=== PATIENT | female | born 1965 | race Hispanic/Latino ===

== ENCOUNTER 2017-11-27 07:04 | Day surgery (SDC) | payer BC ==
--- OUTSIDE RECORDS SUMMARY | 2017-11-27 07:07 | XMS REPORT ---
:1965 Author Organization [employer] Care Team Providers Name Role Phone Emile Myrick Provider Role Unavailable Allergies, Adverse Reactions, Alerts Substance Reaction Event Type N.K.D.A. Info Not Available Non Drug Allergy Problems Problem Type Condition Code Onset Dates Condition Status Problem Family history of diabetes mellitus Z83.3 Active Problem Multiple joint pain M25.50 Active Problem Family history of breast cancer Z80.3 Active Assessment Encounter for screening colonoscopy Z12.11 Active Problem Seasonal and perennial allergic J30.9 Active rhinitis Problem Metabolic syndrome X E88.81 Active Problem Swelling of hand, unspecified M79.89 Active laterality Problem Hyperlipidemia, unspecified E78.5 Active hyperlipidemia type Problem Cerumen impaction H61.20 Active Problem Prediabetes R73.09 Active Problem Hypertension I10 Active Problem Obesity E66.9 Active Medications Medication Code System Code Instructions Start End Date Status Dosage Date Duexis [facility] 97832745803 800-26.6 MG Active 1 tablet Orally Three times a day Nasonex [facility] 84483639830 50 MCG/ACT Active 2 sprays in Nasally Once a each day nostril Zestoretic [facility] 29066661535 10-12.5 MG Active 1 tablet Orally Once a day Results No Known Results Summary Purpose [employer] Submission
--- OUTSIDE RECORDS SUMMARY | 2017-11-27 07:07 | XMS REPORT ---
:1965 Author Organization [employer] Care Team Providers Name Role Phone Oliver Zee Provider Role Unavailable Allergies No Known Allergies Problems Problem Type Condition Code Onset Dates Condition Status Problem Family history of diabetes mellitus Z83.3 Active Problem Multiple joint pain M25.50 Active Problem Family history of breast cancer Z80.3 Active Problem Seasonal and perennial allergic J30.9 Active rhinitis Problem Metabolic syndrome X E88.81 Active Problem Swelling of hand, unspecified M79.89 Active laterality Problem Hyperlipidemia, unspecified E78.5 Active hyperlipidemia type Problem Cerumen impaction H61.20 Active Problem Prediabetes R73.09 Active Problem Hypertension I10 Active Problem Obesity E66.9 Active Medications No Known Medications Results No Known Results Summary Purpose eClinicalWorks Submission
[2017-11-27] MEDS ORDERED: Ringers Lactate 1,000 ML IV ONE (07:43)
[2017-11-27] MEDS ORDERED: PROPOFOL 200 MG/20 ML VIAL IV ONE ×2 (09:23)
[2017-11-27] MEDS ORDERED: LIDOCAINE 1% MPF 5 ML VIAL ONE (09:23)
--- NOTE | 2017-11-27 09:46 | ENDO RPT ---
[address], [address] COLONOSCOPY PROCEDURE REPORT EXAM DATE: 11/27/2017 PATIENT NAME: Kim Guzmán MR #: [id number] BIRTHDATE: 1965 ATTENDING: Emile Myrick DR STATUS: outpatient MANAGER BUSINESS: Naima Rivers and Ivon Quintana RN INDICATIONS: The patient is a 52 yr old Female here for a colonoscopy due to colon cancer screening PROCEDURE PERFORMED: Colonoscopy and Screening Colonoscopy MEDICATIONS: Per Anesthesia. ESTIMATED BLOOD LOSS: None CONSENT: The patient understands the risks and benefits of the procedure and understands that these risks include, but are not limited to: sedation, allergic reaction, infection, perforation and/or bleeding. Alternative means of evaluation and treatment include, among others: physical exam, x-rays, and/or surgical intervention. The patient elects to proceed with this endoscopic procedure. DESCRIPTION OF PROCEDURE: During intra-op preparation period all mechanical medical equipment was checked for proper function. Hand hygiene and appropriate measures for infection prevention was taken. Procedure, possible complications, alternatives including, but not limited to possibility of bleeding, perforation, tear, infection, sepsis, need for surgery, need for blood transfusion, were explained to the patient. After the risks, benefits and alternatives of the procedure were thoroughly explained, Informed consent was verified, confirmed and timeout was successfully executed by the treatment team. The patient was placed in the left lateral position. A digital rectal exam was performed and revealed no abnormalities of the rectum. After appropriate level of anesthesia, the scope was passed. The [id number] ([id number]) endoscope was introduced through the anus and advanced to the cecum, which was identified by both the appendix and ileocecal valve. The quality of the prep was good. The instrument was then slowly withdrawn as the colon was fully examined. Scope withdrawal time was 7 minutes. COLON FINDINGS: Moderate diverticulosis was noted in the sigmoid colon. No bleeding was noted from the diverticulosis. Retroflexed views revealed no abnormalities. The scope was then completely withdrawn from the patient and the procedure terminated. ADVERSE EVENTS: There were no complications. IMPRESSIONS: Moderate diverticulosis was noted in the sigmoid colon RECOMMENDATIONS: 1. low fiber / diverticular diet 2. yearly hemoccult starting in 4 years RECALL: Return in 10 year(s) for Colonoscopy. Emile Myrick DR eSigned: Emile yMrick DR 11/27/2017 9:45 AM cc: CPT CODES: ICD9 CODES: PATIENT NAME: Kim Guzmán MR#: [id number]
== END 2017-11-27 10:20 | disposition home or self-care (01) ==
LOC: OR 07:04
PROVIDERS: ATTEND Surgery
PROC: 0DJD8ZZ Inspection of Lower Intestinal Tract, Via Natural or Artificial Opening Endoscopic (ICD-10-PCS; principal; 2017-11-27 09:45)
DX: Z12.11 Encounter for screening for malignant neoplasm of colon (principal); K57.30 Diverticulosis of large intestine without perforation or abscess without bleeding; I10 Essential (primary) hypertension; Z80.3 Family history of malignant neoplasm of breast; Z80.42 Family history of malignant neoplasm of prostate; Z83.3 Family history of diabetes mellitus; Z82.49 Family history of ischemic heart disease and other diseases of the circulatory system; Z82.3 Family history of stroke; Z82.61 Family history of arthritis